=== PATIENT | male | born 1960 | race African-American/Black ===

== ENCOUNTER 2020-04-18 10:29 | Inpatient (IN) | payer OTHER ==
[2020-04-18] MEDS ORDERED: METHOCARBAMOL 500 MG TABLET PO PRN (12:45)
[2020-04-18] MEDS ORDERED: MAGNESIUM CITRATE 300 ML BOTTLE PO PRN (12:45)
[2020-04-18] MEDS ORDERED: ONDANSETRON *ODT* 4 MG TABLET SL PRN (12:45)
[2020-04-18] MEDS ORDERED: IBUPROFEN 400 MG TABLET (FP) PO PRN (12:45)
[2020-04-18] MEDS ORDERED: MAGNESIUM HYDROX 2400MG/30ML ORAL SUSPENSION 30 ML CUP PO PRN (12:45)
[2020-04-18] MEDS ORDERED: hydrOXYzine PAMOATE 25 MG CAPSULE (FP) PO PRN (12:45)
[2020-04-18] MEDS ORDERED: ACETAMINOPHEN 325 MG TABLET (FP) PO PRN ×2 (12:45)
[2020-04-18] MEDS ORDERED: MENTHOL/PHENOL 1 EACH UD MM PRN (12:45)
[2020-04-18] MEDS ORDERED: MAG HYDROX/AL HYDROX/SIMETH 30 ML UNIT-DOSE CUP PO PRN (12:45)
[2020-04-18] MEDS ORDERED: NICOTINE POLACRILEX 2 MG GUM BUC PRN (12:45)
[2020-04-18] MEDS ORDERED: LORazepam 1 MG TABLET PO PRN (12:45)
[2020-04-18] MEDS ORDERED: BISMUTH SUBSALICYLATE 524 MG/30 ML UD PO PRN (12:45)
[2020-04-18 13:26] VITALS: BMI 23.5
[2020-04-18] MEDS ORDERED: LORazepam 1 MG TABLET ONE (15:46)
[2020-04-18] MEDS ORDERED: LORazepam 2 MG TABLET ONE (17:42)
[2020-04-18] MEDS: LORazepam 2 MG TABLET PO SCH ×2 (17:47→22:50)
[2020-04-18] MEDS: THIAMINE HCL 100 MG TABLET (FP) PO SCH (22:49)
[2020-04-18] MEDS: MELATONIN 5 MG TABLETS PO SCH (22:49)
[2020-04-19] MEDS: LORazepam 2 MG TABLET PO SCH ×4 (07:02→22:45)
[2020-04-19] MEDS: PRENATAL VITAMINS W/ FOLIC ACID TABLET (FP) PO SCH (10:23)
[2020-04-19 12:25] LABS: HEMATOCRIT 38.1 % (35.4-49); HEMOGLOBIN 12.8 GM/dL (11.7-16.9); MCH 31.7 pg (25.7-33.7); MCHC 33.5 g/dl (32.0-35.9); MEAN CELL VOLUME 94.5 fl (80-96); MEAN PLT VOLUME 9.9 fl (7.5-11.1); PLATELET COUNT 217 K/MM3 (134-434); RBC 4.03 M/mm3 (4.00-5.60); RDW 14.9 % (11.9-15.9); WHITE BLOOD COUNT 3.9 K/mm3 (4.0-10.0)
[2020-04-19 12:32] LABS: POTASSIUM 3.4 mmol/L (3.5-5.1)
[2020-04-19 12:35] LABS: ALBUMIN 3.2 g/dl (3.4-5.0); BLOOD UREA NITROGEN 15.4 mg/dL (7-18); CALCIUM 8.6 mg/dL (8.5-10.1)
[2020-04-19 12:39] LABS: CREATININE 0.9 mg/dL (0.55-1.3)
[2020-04-19 12:40] LABS: BILIRUBIN,TOTAL 0.6 mg/dL (0.2-1); TOT PROT 6.8 g/dl (6.4-8.2)
[2020-04-19] MEDS ORDERED: POTASSIUM CHLORIDE ORAL LIQUID 20 MEQ/15 ML PO ONE ×2 (12:55→17:30)
[2020-04-19 13:01] LABS: SICKLE CELL SCREEN NEGATIVE (NEGATIVE)
[2020-04-19] MEDS: MELATONIN 5 MG TABLETS PO SCH (22:45)
[2020-04-19] MEDS: THIAMINE HCL 100 MG TABLET (FP) PO SCH (22:45)
[2020-04-20] MEDS: LORazepam 1 MG TABLET PO SCH ×4 (06:13→23:38)
[2020-04-20] MEDS: PRENATAL VITAMINS W/ FOLIC ACID TABLET (FP) PO SCH (10:26)
[2020-04-20 15:50] LABS: PH,URINE 6.5 (5.0-8.0); URINE APPEARANCE CLEAR; URINE BILIRUBIN NEGATIVE (NEGATIVE); URINE COLOR YELLOW; URINE GLUCOSE (UA) NEGATIVE (NEGATIVE); URINE KETONE NEGATIVE (NEGATIVE); URINE LEUK ESTERASE NEGATIVE (NEGATIVE); URINE NITRITE NEGATIVE (NEGATIVE); URINE PROTEIN NEGATIVE (NEGATIVE); URINE UROBILINOGEN 0.2 mg/dL (0.2-1.0)
[2020-04-20] MEDS: THIAMINE HCL 100 MG TABLET (FP) PO SCH (23:38)
[2020-04-20] MEDS: MELATONIN 5 MG TABLETS PO SCH (23:38)
[2020-04-21] MEDS ORDERED: LORazepam 0.5 MG TABLET PO PRN
[2020-04-21] MEDS: LORazepam 0.5 MG TABLET PO SCH ×4 (05:43→22:17)
[2020-04-21] MEDS: PRENATAL VITAMINS W/ FOLIC ACID TABLET (FP) PO SCH (10:29)
[2020-04-21] MEDS: MELATONIN 5 MG TABLETS PO SCH (22:16)
[2020-04-21] MEDS: THIAMINE HCL 100 MG TABLET (FP) PO SCH (22:17)
[2020-04-22] MEDS ORDERED: LORazepam 0.5 MG TABLET PO ONE (05:00)
[2020-04-22 09:19] VITALS: BP 157/95; PULSE 78; TEMP 98.3
[2020-04-22] MEDS: PRENATAL VITAMINS W/ FOLIC ACID TABLET (FP) PO SCH (11:33)
== END 2020-04-22 10:51 | disposition home or self-care (01) | DRG 775 ==
LOC: YASAS 10:29 → Y6N 20:10
PROVIDERS: ADMIT Allergy & Immunology; ATTEND Allergy & Immunology
PROC: HZ2ZZZZ Detoxification Services for Substance Abuse Treatment (ICD-10-PCS; principal; 2020-04-18)
DX: F10.230 Alcohol dependence with withdrawal, uncomplicated (principal); F12.10 Cannabis abuse, uncomplicated; F19.24 Other psychoactive substance dependence with psychoactive substance-induced mood disorder; F32.9 Major depressive disorder, single episode, unspecified; R76.11 Nonspecific reaction to tuberculin skin test without active tuberculosis; Z72.0 Tobacco use
CPT/HCPCS: 36415; 71046-TC-FY; 80053; 81003; 84132; 85027; 85660; 86780; C9803; U0003